=== PATIENT | female | born 1965 | race Two or more races ===

== ENCOUNTER 2020-07-14 06:17 | Day surgery (SDC) | payer OTHER ==
[~2020-07-14] VITALS: Ht 162.6 cm; Wt 86.2 kg
[2020-07-14 06:55] VITALS: BP 128/75
[2020-07-14 14:28] VITALS: BP 136/63
== END 2020-07-14 14:40 | disposition home or self-care (01) ==
LOC: DS 06:17 → OR 07:30 → DS 07:30
PROVIDERS: ATTEND Student in an Organized Health Care Education/Training Program
DX: M17.11 Unilateral primary osteoarthritis, right knee (principal); I10 Essential (primary) hypertension; E11.9 Type 2 diabetes mellitus without complications; E78.5 Hyperlipidemia, unspecified; Z79.82 Long term (current) use of aspirin; Z79.84 Long term (current) use of oral hypoglycemic drugs; Z96.651 Presence of right artificial knee joint; Z79.899 Other long term (current) drug therapy
CPT/HCPCS: 94150; C1713; C1776; J0690; J1170; J1885; J2001; J2250; J2405; J2704; J3490; J7030; J7120